=== PATIENT | male | born 1990 | race Caucasian/White ===

== ENCOUNTER 2017-09-15 09:46 | Emergency (ER) | payer MEDICAID ==
[~2017-09-15] VITALS: Ht 185.4 cm; Wt 77.1 kg
[2017-09-15 10:02] VITALS: BP 125/80
[2017-09-15] MEDS ORDERED: BACITRACIN ZIN1 EACH TOPIC (10:04)
[2017-09-15] MEDS ORDERED: Bacitracin Oint UD TOPIC ONE (10:15)
[2017-09-15 10:24] VITALS: BP 125/80
--- NOTE | 2017-09-15 11:00 | Emergency Room Report ---
History of Present Illness General Chief Complaint: Wound Recheck/Suture Removal Source: Patient Present Illness HPI The patient is a 26-year-old male who presented after increased bleeding from laceration. Patient had recently been seen at [facility] for laceration to the right wrist. The patient denied any pulsatile bleeding. He denied any numbness or tingling to his fingers. The patient stated he had noticed some blood on his dressing. The laceration a previously been sutured.The patient reports having tetanus vaccine within the past 10 years. Allergies: Coded Allergies: No Known Allergies (Unverified , 09/15/17) Patient History Past Medical History: see triage record Reviewed Nursing Documentation: PMH: Agreed; PSxH: Agreed Nursing Documentation-PMH Past Medical History: No Stated History Review of Systems All Other Systems: negative except mentioned in HPI Physical Exam Vital Signs Date Time Temp Pulse Resp B/P (MAP) Pulse Ox O2 Delivery O2 Flow Rate FiO2 09/15/17 09:50 97.3 102 18 125/80 97 Room Air 97.3 General Appearance: well appearing, no apparent distress, alert, GCS 15 Head: normocephalic, atraumatic ENT: hearing grossly normal, normal voice Neck: full range of motion, supple Respiratory: no respiratory distress, speaking full sentences Cardiovascular #1: normal inspection Gastrointestinal: normal inspection, non tender, soft, no mass Musculoskeletal: no calf tenderness Neurologic: normal inspection, alert, oriented x3, responsive, client care coordinator III-XII nml as tested, normal gait Psychiatric: mood/affect normal Skin: no rash, laceration - sutured, no erythema or exudate, well perfused Medical Decision Making Diagnostic Impression: Primary Impression: Encounter for wound re-check ER Course Patient presented for wound check. Differential diagnosis included was not limited to infected wound, nonhealed wound, neuroma, healed wound. the patient was noted have normal function of his ulnar nerve and of the hand. The patient was having normal sensation bleeding appears to be well-controlled. The patient was advised suture removal in 10 days.The patient is advised to follow up with primary care doctor in 2-3 days for wound check. Patient is advised to return if any worsening condition or if any changes in status that are concerning. This report is dictated with [employer] medical sales representative software which may occasionally lead to discrepancies related to use of this software. Last Vital Signs Date Time Temp Pulse Resp B/P (MAP) Pulse Ox O2 Delivery O2 Flow Rate FiO2 09/15/17 10:24 97.3 75 18 125/80 97 Room Air 97.3 Status: improved Disposition: HOME, SELF-CARE Condition: Stable Scripts Bacitracin Zinc* (BACITRACIN ZINC*) 1 Each Packet 1 APPLIC TOPIC THREE TIMES A DAY, #30 PACKET Prov: Fredi Marie MD 09/15/17 Referrals: NON PHYSICIAN (PCP) Patient Instructions: Wound Check Fredi Marie MD September 15, 2017 10:59
== END 2017-09-15 10:26 | disposition home or self-care (01) ==
LOC: EMR 10:24
DX: S61.511D Laceration without foreign body of right wrist, subsequent encounter (principal); X58.XXXD Exposure to other specified factors, subsequent encounter; Z48.02 Encounter for removal of sutures
CPT/HCPCS: 99283